=== PATIENT | male | born 1935 | race Two or more races ===

== ENCOUNTER 2018-05-04 14:45 | Emergency (ER) | payer OTHER ==
[~2018-05-04] VITALS: Ht 177.8 cm; Wt 80.7 kg
[2018-05-04] MEDS ORDERED: [UNRECOGNIZED DRUG - SUPPLY] (15:11)
[2018-05-04] MEDS ORDERED: AMOX-CLAV 875-1 EACH PO (17:04)
[2018-05-04] MEDS ORDERED: KETO10TA2 PO (17:04)
[2018-05-04] MEDS ORDERED: PEPCID AC20 MG PO (17:07)
[2018-05-04] MEDS ORDERED: INTESTINEX680 M1 PO (17:07)
== END 2018-05-04 21:30 | disposition home or self-care (01) ==
LOC: ER 14:45
DX: K08.89 Other specified disorders of teeth and supporting structures (principal)